=== PATIENT | female | born 1935 | race Caucasian/White ===

== ENCOUNTER 2017-05-06 14:17 | Emergency (ER) | payer OTHER ==
[~2017-05-06] VITALS: Ht 152.4 cm; Wt 50.6 kg
[~2017-05-06 14:17] MED LIST: METH500T3 PO
[2017-05-06 14:20] VITALS: BP 153/67; PULSE 91; RESP 16; TEMP 98.6; O2SAT 94
[2017-05-06] MEDS ORDERED: advil (15:04)
[2017-05-06] MEDS ORDERED: TYLE325T PO (15:04)
[2017-05-06] MEDS ORDERED: IBUP-232 PO (15:04)
--- NOTE | 2017-05-06 15:14 | PD ---
HPI Chief Complaint: Musculoskeletal Complaint Time Seen by Provider: 15:01 Travel History International Travel<30 days: No Contact w/Intl Traveler<30days: No Traveled to known affect area: No History of Present Illness HPI Patient comes emergency Department complaining of generalized body aches and joint pain ongoing for 8 weeks. Patient using [id number] Tylenol or ibuprofen for symptomatic relief, but continues to have the aches. Patient reports she was seen at different ER was told she was fine discharged home. Patient denies any fevers, weight loss, shortness of breath, abdominal pain, headache, falls, numbness tingling anywhere, bleeding from anywhere, darkening stool, dysuria, back pain, or being on any blood thinners. Patient reports pain began while [place] [employer] [place]. Pain is worse with certain movements. PFSH Past Medical History Medical History: Denies Significant Hx Diminished Hearing: No Tetanus Vaccination: Unknown Influenza Vaccination: No ?: Not Menopausal: Yes Past Surgical History Section: Yes (x3) Hysterectomy: Yes Tonsillectomy: Yes Social History Alcohol Use: No Tobacco Use: Yes (1 ppd) Substance Use: No Allergies-Medications (Allergen,Severity, Reaction): Coded Allergies: No Known Allergies (Unverified , 09/08/15) Reported Meds & Prescriptions Reported Meds & Active Scripts Active Prednisone 10 Mg Tab 10 Mg PO BID 3 Days Reported [advil] Tylenol (Acetaminophen) 325 Mg Tab Unknown Dose PO Q4H PRN Ibuprofen 600 Mg Tab Unknown Dose PO Review of Systems Except as stated in HPI: all other systems reviewed are Neg Physical Exam Narrative GENERAL: Well-developed, well nourished, in no acute distress, and non-ill appearing. SKIN: Focused skin assessment warm and dry. HEAD: Atraumatic. Normocephalic. EYES: Pupils equal and round. EOMI. No scleral icterus. No injection or drainage. ENT: No nasal bleeding or discharge. Mucous membranes pink and moist. NECK: Trachea midline. Supple. No nuclear rigidity. CARDIOVASCULAR: Regular rate and rhythm. No murmur appreciated. RESPIRATORY: No accessory muscle use. No respiratory distress. Clear to auscultation. Breath sounds equal bilaterally. GASTROINTESTINAL: Abdomen soft, non-tender, nondistended, and no guarding. Hepatic and splenic margins not palpable. No pulsatile mass. MUSCULOSKELETAL: No obvious deformities. No clubbing. No cyanosis. No edema. Full range of motion. NEUROLOGICAL: Awake and alert. No obvious cranial nerve deficits. Motor grossly within normal limits. Normal speech. PSYCHIATRIC: Appropriate mood and affect; insight and judgment normal. Data Data Last Documented VS Vital Signs Date Time Temp Pulse Resp B/P (MAP) Pulse Ox O2 Delivery O2 Flow Rate FiO2 05/06/17 14:20 98.6 91 16 153/67 (95) 94 Orders Orders Urinalysis - C+S If Indicated (05/06/17 15:11) Dexamethasone Inj (Decadron Inj) (05/06/17 15:15) Ed Discharge Order (05/06/17 16:29) Labs Laboratory Tests Test 05/06/17 15:31 Urine Collection Type CLEAN CATCH Urine Color YELLOW Urine Turbidity CLEAR Urine pH 6.0 Urine Specific [place] 1.016 Urine Protein NEG mg/dL Urine Glucose (UA) NEG mg/dL Urine Ketones TRACE mg/dL Urine Occult Blood NEG Urine Nitrite NEG Urine Bilirubin NEG Urine Leukocyte Esterase NEG Urine RBC 0-3 /hpf Urine WBC 0-2 /hpf Urine Squamous Epithelial Cells 0-5 /hpf Microscopic Urinalysis Comment CULT NOT INDICATED Urine Collection Time 15:31 [facility] Medical Decision Making Medical Screen Exam Complete: Yes Emergency Medical Condition: Yes Differential Diagnosis Osteoarthritis, generalized body aches, UTI, other Narrative Course Patient in no obvious distress upon re-evaluation. All pertinent laboratory result(s) discussed with patient. Discussed patient with Dr. Orourke prior to discharge, who is in agreement with plan of care and disposition. Patient was asked if they wanted to speak to my attending, which the patient did not wish to do at this time. Any questions/concerns in reference to patient diagnosis/ condition discussed and clarified prior to patient's discharge. Reinforced sheer importance of close follow up with patient's primary physician or primary care clinic. Instructed patient to return to ED immediately, if symptoms return/ worsen. Patient showed understanding of above instructions. Further instructions and recommendations were detailed in discharge paperwork. Patient ambulated without difficulty out of ED at discharge. Diagnosis Primary Impression: Generalized pain Referrals: [facility] Patient Instructions: Arthralgia (ED), General Instructions Additional Instructions: Follow-up with your primary care physician in 3-5 days for reevaluation. Take all medication as prescribed. Use Tylenol [id number] as needed for additional pain control. Do not use Advil or Aleve in conjunction with medication prescribed today. Return to the emergency department if symptoms get worse. Med/Other Pt SpecificInfo: Prescription(s) given Scripts Prednisone (Prednisone) 10 Mg Tab 10 MG PO BID for 3 Days, #6 TAB 0 Refills Prov: Pato Garza MD 05/06/17 Disposition: 01 DISCHARGE HOME Condition: Stable Spike Khan May 06, 2017 15:14
[2017-05-06] MEDS ORDERED: DEXAMETHASONE SOD PHOS 4 MG/ML VIAL IM ONE (15:15)
[2017-05-06 15:44] LABS: BILIRUBIN, URINE NEG (NEG); BLOOD, URINE NEG (NEG); GLUCOSE,URINE NEG (NEG); KETONE, URINE TRACE mg/dL (NEG); NITRITE,URINE NEG (NEG); URINE LEUKOCYTE ESTERASE NEG (NEG)
[2017-05-06 16:04] LABS: URINE COLOR YELLOW (YELLW/STRAW)
[2017-05-06 16:05] LABS: RBC, URINE 0-3 /hpf (0-3); SQUAMOUS EPITHELIAL CELL URINE 0-5 /hpf (0-5); WBC, URINE 0-2 /hpf (0-5)
[2017-05-06] MEDS ORDERED: PRED10 PO (16:28)
== END 2017-05-06 16:41 | disposition home or self-care (01) ==
LOC: PHEFT 14:17
DX: R52 Pain, unspecified (principal); F17.200 Nicotine dependence, unspecified, uncomplicated
CPT/HCPCS: 81001; 96372; 99284; J1100

== ENCOUNTER 2017-07-29 15:39 | Emergency (ER) | payer OTHER ==
[~2017-07-29 15:39] MED LIST changes: +IBUP-232 PO; -METH500T3 PO; +PRED10 PO; +TYLE325T PO; +advil
[2017-07-29 15:50] VITALS: BP 145/71; PULSE 100; RESP 18; TEMP 99.2; O2SAT 95
[2017-07-29] MEDS ORDERED: LIDOCAINE HCL 1% 30 ML VIAL INFIL ONE (16:00)
[2017-07-29] MEDS ORDERED: LIDOCAINE HCL 1% PF 30 ML VIAL ONE (16:02)
[2017-07-29] MEDS ORDERED: MOBI7.5T PO (16:22)
--- NOTE | 2017-07-29 16:23 | PD ---
HPI Chief Complaint: Pain: Acute or Chronic Time Seen by Provider: 15:58 Travel History International Travel<30 days: No Contact w/Intl Traveler<30days: No Traveled to known affect area: No History of Present Illness HPI 82-year-old female complaining of pain and swelling the left knee. Patient states that the left knee pain swelling started several days ago. Patient denies any injury to the left knee. Patient also complained of diffuse joint pain. Patient denies any fever chills. Patient states the pain aching pain and sharp pain localized to the joint on the joints especially at the left knee joint. Patient denies any pain radiation. On a scale of 1-10 the pain is a 7. PFSH Past Medical History Diminished Hearing: No ?: Not Menopausal: Yes Past Surgical History Section: Yes (x3) Hysterectomy: Yes Tonsillectomy: Yes Social History Alcohol Use: No Tobacco Use: Yes (1 ppd) Substance Use: No Allergies-Medications (Allergen,Severity, Reaction): Coded Allergies: No Known Allergies (Unverified Adverse Reaction, Unknown, 07/29/17) Reported Meds & Prescriptions Reported Meds & Active Scripts Active Prednisone 10 Mg Tab 10 Mg PO BID 3 Days Reported [advil] Tylenol (Acetaminophen) 325 Mg Tab Unknown Dose PO Q4H PRN Ibuprofen 600 Mg Tab Unknown Dose PO Review of Systems General / Constitutional: No: Fever Eyes: No: Visual changes HENT: No: Headaches Cardiovascular: No: Chest Pain or Discomfort Respiratory: No: Shortness of Breath Gastrointestinal: No: Abdominal Pain Genitourinary: No: Dysuria Musculoskeletal: Positive: Pain Skin: No Rash Neurologic: No: Weakness Psychiatric: No: Depression Endocrine: No: Polydipsia Hematologic/Lymphatic: No: Easy Bruising Physical Exam Narrative GENERAL: Well-nourished, well-developed patient. SKIN: Focused skin assessment warm/dry. HEAD: Normocephalic. EYES: No scleral icterus. No injection or drainage. NECK: Supple, trachea midline. No JVD or lymphadenopathy. CARDIOVASCULAR: Regular rate and rhythm without murmurs, gallops, or rubs. RESPIRATORY: Breath sounds equal bilaterally. No accessory muscle use. GASTROINTESTINAL: Abdomen soft, non-tender, nondistended. MUSCULOSKELETAL: No cyanosis, or edema. BACK: Nontender without obvious deformity. No CVA tenderness. GENERAL: Well-nourished, well-developed patient. SKIN: Focused skin assessment warm/dry. HEAD: Normocephalic. EYES: No scleral icterus. No injection or drainage. NECK: Supple, trachea midline. No JVD or lymphadenopathy. CARDIOVASCULAR: Regular rate and rhythm without murmurs, gallops, or rubs. RESPIRATORY: Breath sounds equal bilaterally. No accessory muscle use. GASTROINTESTINAL: Abdomen soft, non-tender, nondistended. MUSCULOSKELETAL: No cyanosis, or edema. BACK: Nontender without obvious deformity. No CVA tenderness. Patient has a large effusion noticed on the left knee. Full range of motion of left knee. Knee joint stable. No redness or swelling no deformity noted. Data Data Last Documented VS Vital Signs Date Time Temp Pulse Resp B/P (MAP) Pulse Ox O2 Delivery O2 Flow Rate FiO2 07/29/17 15:50 99.2 100 18 145/71 (95) 95 Orders Orders Lidocaine 1% Inj (Xylocaine 1% Inj) (07/29/17 16:00) Knee, Ltd (1 Or 2vws) (07/29/17 16:00) Synovial Fl Cell Count + Diff (07/29/17 16:00) Synovial Fluid Crystals (07/29/17 16:00) Lidocaine Pf 1% Inj (Xylocaine-Mpf 1% In (07/29/17 16:02) MDM Medical Decision Making Medical Screen Exam Complete: Yes Emergency Medical Condition: Yes Differential Diagnosis Differential diagnosis including osteoarthritis, gouty arthritis, septic joint. Narrative Course 82-year-old female with pain swelling left knee joint. Left knee aspiration done. Fluid sent for analysis. Decadron 8 mg IM. Procedures Procedure Narrative Left knee aspiration: 1% lidocaine local anesthesia. Betadine wash. Left knee aspiration was done with 10 cc syringe, 16-gauge needle. 40 cc clear greenish fluid obtained. Fluid was sent for C&S, Gram stain, crystal analysis. Diagnosis Primary Impression: Osteoarthritis of left knee Qualified Codes: M17.12 - Unilateral primary osteoarthritis, left knee Additional Impression: Effusion, left knee Patient Instructions: General Instructions Additional Instructions: Take medication as directed. Follow-up with personal physician and orthopedist. Return if worse. Med/Other Pt SpecificInfo: Prescription(s) given Scripts Meloxicam (Mobic) 7.5 Mg Tab 7.5 MG PO DAILY for Pain, #30 TAB 0 Refills Prov: Alessandro Mendoza MD 07/29/17 Disposition: 01 DISCHARGE HOME Condition: Stable Alessandro Mendoza MD Jul 29, 2017 16:23
[2017-07-29] MEDS ORDERED: DEXAMETHASONE SOD PHOS 4 MG/ML VIAL IM ONE (16:30)
--- NOTE | 2017-07-29 16:40 | RADRPT ---
EXAM DATE/TIME: 07/29/2017 16:15 [facility] COMPARISON: No previous studies available for comparison. INDICATIONS : Left knee pain and swelling. No injury. MEDICAL HISTORY : None. SURGICAL HISTORY : None. ENCOUNTER: Initial ACUITY: 1 day PAIN SCORE: 4/10 LOCATION: Left knee. FINDINGS: The examination demonstrates mild tricompartmental osteoarthritic changes. There is no significant miladis int effusion. No acute fracture or destructive lesion is seen. CONCLUSION: 1. Mild osteoarthritic changes. No acute abnormality. Wes Barrett MD on July 29, 2017 at 16:37 Board Certified Radiologist. This report was verified electronically.
[2017-07-29 17:03] LABS: WBC, SYNOVIAL FLUID 8250 /MM3 (0-200)
[2017-07-29 17:19] VITALS: BP 184/90
== END 2017-07-29 17:21 | disposition home or self-care (01) ==
LOC: PHED 15:39
DX: M17.12 Unilateral primary osteoarthritis, left knee (principal); M25.462 Effusion, left knee; F17.200 Nicotine dependence, unspecified, uncomplicated
CPT/HCPCS: 20610; 73560; 87070; 87205; 89051; 89060; 96372; 99284; J1100